=== PATIENT | male | born 1990 ===

== ENCOUNTER 2021-03-17 15:06 | Emergency (ER) | payer OTHER, SELFPAY ==
[2021-03-17 15:26] VITALS: BP 127/81; PULSE 63; RESP 18; TEMP 36.7; O2SAT 98; BMI 38.4
[2021-03-17] MEDS: Tetracaine HCl/PF 0.5% Oph Sol 4 ML DROPS 3 DROP EYE-RIGHT (16:14)
[2021-03-17] MEDS: Fluorescein Sodium STRIP 1 STRIP EYE-RIGHT (16:36)
--- NOTE | 2021-03-17 16:47 | PC.NURSE ---
left eye 20/40, right eye 20/40 both eyes 20/25
--- NOTE | 2021-03-17 17:17 | ED.EYEPROB ---
HPI - Eye Problem General Chief complaint: Eye Problems Stated complaint: Right eye swelling and redness Time Seen by Provider: 03/17/21 15:30 Source: patient Mode of arrival: ambulatory Limitations: language barrier History of Present Illness HPI Narrative: 30-year-old male with redness in right eye. Patient states that 2 days ago he was vomiting and straining, and noticed worsening redness in his right eye. Patient had right eye pain.yesterday, no Pain today no foreign body sensation, no Pain with eye movement, no fevers, no headache. Patient has no photophobia. No sensation of itching. chief complaint: eye redness Onset (ago): day(s) (3) Onset description: gradual Location: right eye Eye Symptoms: redness Place: home Mechanism: none If Pain, Quality: burning Associated symptoms: none Treatments Prior to Arrival: none Related Data Previous Rx's Medication Instructions Recorded white petrolatum-mineral oil 83 1 appl OPHTHALMIC (EYE) BEDTIME 03/17/21 %-15 % eye ointment (Artificial #3.5 g Tears (petrolatum/mineral oil)) Allergies Allergy/AdvReac Type Severity Reaction Status Date / Time No Known Allergies Allergy Verified 03/17/21 15:33 Review of Systems Constitutional: Constitutional: Denies body ache(s), Denies chills, Denies fatigue, Denies fever(s), Denies headache(s), Denies malaise and Denies weakness Eyes: Eyes: Denies blurry vision, Denies change in vision, Denies diplopia, Denies floaters, Denies irritation, Denies itchy eyes, Denies loss of peripheral vision, Denies loss of vision, Denies other visual disturbances, Denies eye pain, Reports requires corrective lenses, Denies seeing flashes, Denies photophobia, Denies spots in vision and Reports other (redness in right eye) ENT: Denies vertigo, Denies dizziness, Denies otalgia, Denies headache(s), Denies mouth pain, Denies post nasal drip, Denies sinus pain, Denies sinus pressure, Denies sore throat and Denies throat swelling Cardiovascular: Cardiovascular: Denies chest pain, Denies syncope, Denies leg edema, Denies lightheadedness, Denies Loss of Consciousness, Denies palpitations and Denies dyspnea Respiratory: Respiratory: Denies chest congestion, Denies cough and Denies dyspnea Gastrointestinal: Gastrointestinal: Denies abdominal pain, Denies hematochezia, Denies constipation, Denies diarrhea and Denies vomiting Musculoskeletal: Musculoskeletal: Reports no additional musculoskeletal complaints Neurologic: Denies confusion, Denies vertigo, Denies dizziness, Denies syncope, Denies headache(s), Denies loss of vision and Denies weakness Psychiatric: Psychiatric: Denies anxiety, Denies confusion and Denies depression Endocrine: Endocrine: Denies fatigue and Denies palpitations Allergic/Immunologic: Allergic/Immunologic: Denies itchy eyes and Denies throat swelling PMFSH Past Medical History Medical History No known health problems Social History Social History Advance Directives: No Advance Directives Information Provided: No Physical Exam Vital Signs: Vital Signs: Last Vital Signs Temp 98.0 F 03/17/21 15:26 Pulse 63 03/17/21 15:26 Resp 18 03/17/21 15:26 BP 127/81 03/17/21 15:26 Pulse Ox 98 03/17/21 15:26 BMI result Body Mass Index 38.4 Const: General: No confusion Nutritional Appearance: well nourished Orientation/consciousness: No confusion Limitations: no limitations HENMT: Head: Yes normal to inspection, Yes normocephalic and Yes atraumatic Ears: hearing grossly normal bilaterally, external ears normal, TM's normal bilaterally and EAC's normal General nose exam: Normal external nose present Face and sinus: Yes normal facial exam and Yes sinuses nontender Mouth: Normal oral and palatal mucosa present Throat: Yes posterior oropharynx normal Eyes: Visual Sy: normal visual sy by confrontation Alignment and Position: alignment normal Eyelids: Yes eyelids normal Conjunctivae: conjunctival abnormal right pterygium and subconjunctival hemorrhage Sclerae: sclerae normal Corneas: corneas normal and fluorescein used Pupils: Equal, round and reactive pupils present EOM: EOMs intact bilaterally Direct Ophthalmoscopy: normal light reflex, no photophobia and No photophobia Neck: Neck: Yes full ROM, Yes no lymphadenopathy and Yes supple Resp: Effort & Inspection: normal respiratory effort and able to speak in complete sentences Auscultation: clear to auscultation bilaterally, no crackles, no rales, no rhonchi and no wheezes Cardio: Rate: regular rate Rhythm: regular rhythm Heart sounds: S1 normal heart sound present and S2 normal heart sound present GI: Inspection: Yes normal to inspection Palpation (GI): Soft to palpation, nontender, no guarding and not rigid Percussion: Yes normal to percussion Auscultation: normal bowel sounds Skin: General skin exam: no rashes or lesions noted Neuro: General: No confusion Cranial nerves: Yes Equal, round and reactive pupils present Extrem: General: Yes normal to inspection and Yes full ROM Psych: Appearance: grossly normal Affect: normal affect Attitude: cooperative Thought process: Normal thought process present Course Course Course Narrative: 30-year-old male presents for 3 days and redness in right eye. Redness happened after patient was straining and vomiting 3 days ago. On exam, patient has intact EOMs, pupils equal reactive to light, there is a subconjunctival hemorrhage in patient's eye medial to his iris with a pterygium patient denies working with metal, any trauma, any foreign body into his eye. Patient does tell me that he has had this bump in his thigh for quite a while, but the redness is new. Patient has visual acuity of 20/40 and right and left thigh both eyes together 20/25 without his glasses. Patient does not wear contacts. Dr Chaidez came to see patient and agreed patient does not need imaging with no story for metal or FB Prescribed artificial tears, have patient follow-up with opthamologist Gave return precautions of worsening vision, severe headache, visual loss, return to ED Discharge Plan Discharge Clinical Impression: Subconjunctival hemorrhage Patient Disposition: Home, Self-Care Instructions: Subconjunctival Hemorrhage (ED) Additional Instructions: Please call eye doctor at [phone] for follow up appointment I have referred you as well and they should be calling you I was able to prescribe artificial tears to your pharmacy please return to the emergency room if you have worsening eye pain, loss of vision, sudden severe headache, or any other new or concerning symptoms Llame al oftalm?logo al [phone] para tan karl de seguimiento. Yo tambi?n te he recomendado y deber?an estar llam?ndote. Pude recetar l?grimas artificiales a mota farmacia regrese a la galo de emergencias si tiene un empeoramiento del dolor en los ojos, p?rdida de la visi?n, dolor de darlin repentino e intenso o cualquier otro s?ntoma nuevo o preocupante Prescriptions: New Artificial Tears (bianca/min) 83-15 % ointment 1 appl ophthalmic (eye) BEDTIME Qty: 3.5 0RF Referrals: Jeb Gee [Physician] - 2 days (subconjunctival hemorrhage with ?pterygium) Interventions: ED Discharge Assessment Last Done: 03/17/21 17:31 Discharge Date/Time: 03/17/21 17:32 Print Language: [place]
== END 2021-03-17 17:32 | disposition home or self-care (01) ==
PROVIDERS: Emergency Provider Emergency Medicine
DX: H11.31 Conjunctival hemorrhage, right eye (principal); Z79.899 Other long term (current) drug therapy
CPT/HCPCS: 99283